=== PATIENT | female | born 1990 | race Two or more races ===

== ENCOUNTER 2020-01-01 11:48 | Emergency (ER) | payer SELFPAY ==
[~2020-01-01] VITALS: Ht 165.1 cm; Wt 64.0 kg
[2020-01-01] MEDS ORDERED: FAMOTIDINE 20MG/2ML VIAL IV STA (13:16)
[2020-01-01] MEDS ORDERED: SODIUM CHLORIDE 0.9% 1,000 ML IV ONE (13:30)
[2020-01-01 14:05] LABS: BASOPHILS % 0.7 % (0.0-2.0); EOSINOPHILS % 0.7 % (0.0-5.0); HEMATOCRIT. 39.6 % (36.0-48.0); LYMPHOCYTES % 30.8 % (20.0-50.0); MEAN CORPUSCULAR HEMOGLOBIN 27.2 pg (28.0-32.0); MEAN CORPUSCULAR VOLUME 82.8 fL (81.0-99.0); MEAN PLATELET VOLUME 8.4 fl (7.4-10.4); MONOCYTES % 7.7 % (2.0-8.0); NEUTROPHILS % 60.1 % (40.0-76.0); PLATELET 344 x1000/uL (130-400); RED BLOOD CELL COUNT 4.78 mill/uL (4.2-5.4); RED CELL DISTRIBUTION WIDTH 16.9 % (11.6-14.6)
[2020-01-01 14:10] LABS: CHLORIDE 105 mEq/L (98-107)
[2020-01-01 14:41] LABS: B-HCG QUANTITATIVE 35833 mIU/mL (<3)
[2020-01-01 15:25] LABS: PROTHROMBIN TIME 10.7 sec (9.6-11.0)
[2020-01-01 15:36] LABS: CLARITY URINE CLOUDY (CLEAR); COLOR URINE YELLOW (YELLOW); KETONES URINE 2+ (NEGATIVE); LEUKOCYTE ESTERASE URINE 1+ (NEGATIVE); NITRITE URINE POSITIVE (NEGATIVE); OCCULT BLOOD URINE NEGATIVE (NEGATIVE); PH URINE 7.5 (4.5-8.0); PROTEIN URINE NEGATIVE (NEGATIVE); SPECIFIC GRAVITY URINE 1.018 (1.005-1.030); UROBILINOGEN URINE 0.2 E.U./dL (0.2-1.0)
[2020-01-01 16:52] VITALS: BP 123/84
== END 2020-01-01 17:26 | disposition home or self-care (01) ==
LOC: ER 11:59
DX: O23.41 Unspecified infection of urinary tract in pregnancy, first trimester (principal); Z3A.01 Less than 8 weeks gestation of pregnancy
CPT/HCPCS: 36415; 76705; 76801; 76817; 80053; 81003; 81025; 83690; 84484; 84702; 85025; 85610; 87077; 87086; 87186; 93005; 96361; 96374; 99285; J3490; J7030